=== PATIENT | female | born 1960 | race Caucasian/White ===

== ENCOUNTER → 2017-06-06 | Outpatient (CLI) | payer OTHER ==
[2017-06-06 18:21] LABS: TRANSFERRIN 334 mg/dl (200-360)
== END | disposition home or self-care (01) ==
LOC: C.LABPBG 15:49
PROVIDERS: ATTEND Internal Medicine Rheumatology
DX: M15.9 Polyosteoarthritis, unspecified (principal); E55.9 Vitamin D deficiency, unspecified; M85.80 Other specified disorders of bone density and structure, unspecified site; M13.0 Polyarthritis, unspecified; M54.6 Pain in thoracic spine